=== PATIENT | female | born 1965 | race American Indian/Alaskan Native ===

== ENCOUNTER 2020-09-02 17:25 | Emergency (ER) | payer MEDICARE ==
[2020-09-02 18:26] VITALS: BP 117/69
[2020-09-02 19:11] LABS: Bilirubin,Urine NEG (Negative); Blood,Urine NEG (Negative); Color,Urine Yellow (Yellow); Hyaline Casts,Urine 1 /LPF; Mucus,Urine FEW /HPF; Protein,Urine <15 mg/dL mg/dL (Negative); Urobilinogen,Urine < 2.0 mg/dL (<2.0)
--- NOTE | 2020-09-02 19:20 | Emergency Department Report ---
ED General Adult HPI - General Chief complaint: Urogenital-Female Stated complaint: NAUSEA/FEVER/COLD/UTI Time Seen by Provider: 09/02/20 18:52 Source: patient Mode of arrival: Ambulatory Limitations: No Limitations - History of Present Illness Initial comments: Patient is a 55-year-old female who presents emergency room for a recheck. She states that on August 22, 2020 she was having [id number] symptoms which she states were chills, subjective fever, generalized body aches, nausea. She states that she had a COVID-19 test on August 23, 2020 which she states was negative. She states that she went to another emergency department 3 days ago and had urine sample, chest x-ray, lab work performed and reports that she was diagnosed with suspected COVID-19 and UTI. She states that she was started on Bactrim but stopped taking it due to nausea from the Bactrim. She states that she presents today to see if she still has a UTI. She states that she is also noticed a white film on her tongue and has pain to the tongue. She states that she has an appointment for another COVID-19 test. She denies any vomiting, diarrhea, cough, sore throat, ear pain, abdominal pain, chest pain, shortness of breath. She has a past medical history of hypertension. Allergy to penicillin. She states that she is a non-smoker. - Related Data Previous Rx's Medication Instructions Recorded Last Taken Type Fluconazole (Nf) [Diflucan TAB] 150 mg PO ONCE #1 tablet 09/02/20 Unknown Rx Nystatin [Nystatin SUSP] 10 ml PO TID #300 ml 09/02/20 Unknown Rx Promethazine [Phenergan] 25 mg PO Q8HR PRN #10 tab 09/02/20 Unknown Rx Allergies Allergy/AdvReac Type Severity Reaction Status Date / Time No Known Allergies Allergy Unverified 09/02/20 18:25 ED Review of Systems ROS: Stated complaint: NAUSEA/FEVER/COLD/UTI Other details as noted in HPI Comment: All other systems reviewed and negative ED Past Medical Hx - Past Medical History Previous Medical History?: No - Social History Smoking Status: Never Smoker Substance Use Type: None - Medications Home Medications: Home Medications Medication Instructions Recorded Confirmed Last Taken Type Fluconazole (Nf) [Diflucan TAB] 150 mg PO ONCE #1 tablet 09/02/20 Unknown Rx Nystatin [Nystatin SUSP] 10 ml PO TID #300 ml 09/02/20 Unknown Rx Promethazine [Phenergan] 25 mg PO Q8HR PRN #10 tab 09/02/20 Unknown Rx ED Physical Exam - General Limitations: No Limitations General appearance: alert, in no apparent distress - Head Head exam: Present: atraumatic, normocephalic - Eye Eye exam: Present: normal appearance - ENT ENT exam: Present: normal orophraynx, mucous membranes moist, other (there is white plaques present to the tongue with mild erythema) - Respiratory Respiratory exam: Present: normal lung sounds bilaterally. Absent: respiratory distress, wheezes, rales, rhonchi, stridor, chest wall tenderness, accessory muscle use, decreased breath sounds, prolonged expiratory - Cardiovascular Cardiovascular Exam: Present: regular rate, normal rhythm, normal heart sounds. Absent: systolic murmur, diastolic murmur, rubs, gallop - Neurological Exam Neurological exam: Present: alert, oriented X3 - Psychiatric Psychiatric exam: Present: normal affect, normal mood - Skin Skin exam: Present: warm, dry, intact ED Course Vital Signs 09/02/20 18:12 Temperature 98.1 F Pulse Rate 72 Respiratory 18 Rate Blood Pressure 117/69 O2 Sat by Pulse 98 Oximetry ED Medical Decision Making - Medical Decision Making Patient is a 55-year-old female who presents emergency room for a recheck. She states that on August 22, 2020 she was having [id number] symptoms which she states were chills, subjective fever, generalized body aches, nausea. She states that she had a COVID-19 test on August 23, 2020 which she states was negative. She states that she went to another emergency department 3 days ago and had urine sample, chest x-ray, lab work performed and reports that she was diagnosed with suspected COVID-19 and UTI. She states that she was started on Bactrim but stopped taking it due to nausea from the Bactrim. She states that she presents today to see if she still has a UTI. She states that she is also noticed a white film on her tongue and has pain to the tongue. She states that she has an appointment for another COVID-19 test. She denies any vomiting, diarrhea, cough, sore throat, ear pain, abdominal pain, chest pain, shortness of breath. She has a past medical history of hypertension. Allergy to penicillin. She states that she is a non-smoker. Vitals are normal. on exam: there is white plaques present to the tongue with mild erythema. Examination appears most consistent with oral candidiasis. UA is within normal limits, no signs of UTI. Breath sounds are clear, patient is not having a cough, she has no fever, no shortness of breath, no chest pain.she has no clinical signs of bacterial pneumonia or bacterial bronchitis. She has no clinical signs of dehydration. Discussed all results with patient and answered questions. Patient given prescription for fluconazole, nystatin, Phenergan. Advised patient Please use medication as prescribed. Please increase your fluid intake over the next several days. May take Tylenol as needed for fever or body aches. Follow-up with a primary care doctor for reex amination. Return to emergency room immediately for any new or worsening symptoms including but not limited to difficulty breathing, shortness of breath, severe chest pain, unable to tolerate by mouth intake, etc. Please self quarantine for 2 weeks from the onset of your symptoms. Please do not go out in public. If you are around others at home please wear a mask. If you need to cough or sneeze please do so in a napkin and immediately throw it away and immediately wash your hands. Wash your hands frequently. Wipe everything down. Recommend for you to get COVID-19 testing, may have this done at primary care doctor, health department, [facility] thru testing center. Critical care attestation.: If time is entered above; I have spent that time in minutes in the direct care of this critically ill patient, excluding procedure time. ED Disposition Clinical Impression: Oral thrush, Viral syndrome Disposition: DC-01 TO HOME OR SELFCARE Is pt being admited?: No Does the pt Need Aspirin: No Condition: Stable Instructions: COVID-19, Oral Candidiasis (ED), Viral Syndrome (ED) Additional Instructions: Please use medication as prescribed. Please increase your fluid intake over the next several days. May take Tylenol as needed for fever or body aches. Follow-up with a primary care doctor for reexamination. Return to emergency room immediately for any new or worsening symptoms including but not limited to difficulty breathing, shortness of breath, severe chest pain, unable to tolerate by mouth intake, etc. Please self quarantine for 2 weeks from the onset of your symptoms. Please do not go out in public. If you are around others at home please wear a mask. If you need to cough or sneeze please do so in a napkin and immediately throw it away and immediately wash your hands. Wash your hands frequently. Wipe everything down. Recommend for you to get COVID-19 testing, may have this done at primary care doctor, health department, [facility] testing center. Prescriptions: Fluconazole (Nf) [Diflucan TAB] 150 mg PO ONCE #1 tablet Nystatin [Nystatin SUSP] 10 ml PO TID #300 ml Promethazine [Phenergan] 25 mg PO Q8HR PRN #10 tab PRN Reason: Nausea Referrals: PRIMARY CARE,MD [Primary Care Provider] - 2-3 Days Time of Disposition: 19:20 Print Language: [place]
== END 2020-09-02 19:36 | disposition home or self-care (01) ==
LOC: ED 17:25
DX: B37.0 Candidal stomatitis (principal); B34.9 Viral infection, unspecified; Z79.899 Other long term (current) drug therapy
CPT/HCPCS: 81001